=== PATIENT | female | born 1965 | race Caucasian/White ===

== ENCOUNTER 2023-07-12 18:11 | Emergency (ER) | payer BC, SELFPAY ==
[2023-07-12 18:25] VITALS: BP 180/106
--- NOTE | 2023-07-12 20:01 | ED.GENMED ---
History of Present Illness
General
Chief Complaint: Nose Bleed
Source: patient and spouse
Exam Limitations: none
Time Seen by Provider: 07/12/23 19:22
Nursing documentation reviewed up to this point in time: agreed with
Travel History
Have you had any contact with someone who has COVID-19?: No
Do you have any symptoms of coronavirus? Fever > 100 degrees, chills, cough, shortness of breath, sore throat, loss of taste or smell, muscle aches, or headache?: No
History of Present Illness
History of Present Illness:
57-year-old female presents emergency room complaining of nosebleed for the past 7 days. This has happened multiple times. She was seen in urgent care yesterday and told to come to the emergency department for her next nosebleed. She is not on
blood thinners. She arrived with a nose clip in place.
Past History
Past History
ED Past Medical History: HTN
ED Past Surgical History: None
Social History
Tobacco: Non-smoker
Alcohol: None
Drug: None
Personal:
Living: with family
Employment: Employed
Review of Systems
Review of Systems
Allergies reviewed?: Yes
All Other Systems: Not applicable
Constitutional: Reports no symptoms
EENT: Reports other (Nosebleed)
Respiratory: Reports no symptoms
Cardiac: Reports no symptoms
ABD/GI: Reports no symptoms
: Reports no symptoms
Musculoskeletal: Reports no symptoms
Skin: Reports no symptoms
Neurological: Reports no symptoms
Hematologic/Lymphatic: Reports no symptoms
Psychiatric: Reports no symptoms
Phy Exam
Physical Exam
Physical Exam:
Physical Exam
General: no apparent distress, not acutely ill
Neck: supple. no meningeal signs. normal posterior pharynx
Heart: equal radial pulses.
HEENT: Pupils equal round reactive to light, EOMI, epistaxis right nare, anterior, erythema throughout right nare
Lungs: clear bilaterally
Abdomen: normal bowel sounds. not tender. no CVAT
Neuro: alert and oriented. no focal neurological deficits
Skin: no rash
Psychiatric: well kept. interactive and cooperative
Extremities: no edema.
Course
Orders/Labs/Results
Orders:
07/12/23 19:04
07/12/23 19:04
Vital Signs
Initial and Last Documented VS:
Initial Vital Signs
Temp Pulse Resp BP Pulse Ox
98.1 F 73 20 180/106 97
07/12/23 18:25 07/12/23 18:25 07/12/23 18:25 07/12/23 18:25 07/12/23 18:25
Last Documented Vital Signs
Temp Pulse Resp BP Pulse Ox
98.1 F 71 18 171/92 97
07/12/23 18:25 07/12/23 20:18 07/12/23 20:18 07/12/23 20:18 07/12/23 20:18
Procedures
Nosebleed
Drug treatment: Lidocaine and Epinephrine
Treatment: Silver nitrate cautery
Post treatment bleeding: none- good control
MDM/Problems Addressed
Differential Diagnosis Includes:
Posterior/anterior epistaxis
MDM/Problems Addressed:
57-year-old female with anterior epistaxis, silver nitrate cautery and epinephrine controlled bleeding.
Chronic conditions affecting care: HTN
Acute Exacerbation and/or Progression of Chronic Illness: HTN
*Pulse Oximetry
Patient hypoxic: no
*EKG
Interpreted by ED Provider?: NA
*Inf[employer] Indirect [employer] Crewmember Interpretation
Rate: [employer] Indirect [employer] Crewmember- N/A
*Critical Care Note
Total Time (30-74mins, 75-104mins- exclusive of procedures): Not Applicable
Patient Management
Social determinants of health affecting care: Living situation and Strong social support
Escalation/DeEscalation of care consider admission/obs:
Admit not indicated
ED Attending Note
-
Portions of this chart may have been created with voice recognition software.� Occasional wrong word or��sound alike� substitutions may have occurred due to the inherent limitations of voice recognition software.
Discharge Plan
Departure
Patient Disposition: Home (Routine Discharge)
Patient with high blood pressure during this ER visit?: Yes
Condition: Good
Discharge Problem:
Acute anterior epistaxis
Instructions: Nosebleeds (DC), BLOOD PRESSURE
Activity Restrictions/Additional Instructions:
Follow-up with ENT as scheduled. Return for any concerns.
Interventions
Interventions:
*Risk Screen - Suicide Last Done: 07/12/23 19:58
*General Assessment Last Done: 07/12/23 19:58
*Neglect/Abuse Screening Last Done: 07/12/23 19:58
ED- Fall Risk Assessment Last Done: 07/12/23 20:25
*ED COVID-19 Vaccine History Last Done: 07/12/23 19:58
*Nursing Disposition Last Done: 07/12/23 20:25
ED-EENT Assessment Last Done: 07/12/23 20:18
Discharge Date and Time
Discharge Date/Time: 07/12/23 20:26
[2023-07-12 20:18] VITALS: BP 171/92
== END 2023-07-12 20:26 | disposition home or self-care (01) ==
LOC: EMR 18:11
PROVIDERS: EMERGENCY PHYSICIAN Emergency Medicine; FAMILY PHYSICIAN Internal Medicine
DX: R04.0 Epistaxis (principal); I10 Essential (primary) hypertension
CPT/HCPCS: 99282; 30901